=== PATIENT | male | born 1970 | race Two or more races ===

== ENCOUNTER 2024-06-07 07:29 | Inpatient (IN) | payer MEDICAID ==
[~2024-06-07] VITALS: Ht 180.3 cm; Wt 89.0 kg
[~2024-06-07 07:29] MED LIST: AML5T GT; CHOL20007 PO; LISI2.5T47 PO
[2024-06-07] MEDS: PREGABALIN CAPSULE 75 MG CAP PO ONE (08:51)
[2024-06-07] MEDS: CELECOXIB 100 MG CAP PO ONE (08:51)
[2024-06-07] MEDS: BUPIVACAINE W/ EPINEPH 0.5% INJ 50ML MDV IJ ONE (08:56)
[2024-06-07] MEDS: TRANEXAMIC ACID 20 ML ONE (08:56)
[2024-06-07] MEDS: ACETAMINOPHEN IV 100 ML IV ONE (09:08)
[2024-06-07] MEDS: CELECOXIB 100 MG CAP ONE (09:12)
[2024-06-07] MEDS: PREGABALIN CAPSULE 75 MG CAP ONE (09:12)
[2024-06-07] MEDS: CEFEPIME 1GM/ 50ML 50 ML IV ONE (09:32)
[2024-06-07] MEDS ORDERED: NITROGLYCERIN 0.4 MG SL TAB SL PRN ×2 (09:45→19:45)
[2024-06-07] MEDS ORDERED: OXYCODONE W/ ACETAMINOPHEN 5/325MG TABLET PO PRN (09:45)
[2024-06-07] MEDS: ACETAMINOPHEN IV 1000 MG/100ML (10MG/ML) IV ONE (09:45)
[2024-06-07] MEDS: KETOROLAC TROMETH 30 MG/ML 1ML VIAL ONE (09:55)
[2024-06-07] MEDS ORDERED: fentaNYL CITRATE 100 MCG/2 ML VL ONE (09:56)
[2024-06-07] MEDS ORDERED: MIDAZOLAM HCL 2MG/2ML 2ml VIAL (1mg/ml) ONE (09:56)
[2024-06-07] MEDS ORDERED: PATIENTS OWN MEDICATION (Lisinopril 2.5 MG) PO SCH (10:00)
[2024-06-07] MEDS ORDERED: CEFEPIME 1GM/ 50ML 50 ML IV SCH (10:00)
[2024-06-07] MEDS ORDERED: PATIENTS OWN MEDICATION (Cholecalciferol (Vitamin D3) 1 TAB) PO SCH (10:00)
[2024-06-07] MEDS ORDERED: PROPOFOL 10 MG/ML 20 ML IV ONE ×2 (10:23)
[2024-06-07] MEDS: ceFAZolin 1GM/50ML 50 ML IV SCH (10:28)
[2024-06-07] MEDS: CEFEPIME 1GM/ 50ML 50 ML IV SCH (10:35)
[2024-06-07] MEDS ORDERED: ESMOLOL HCL 10 ML IV ONE (10:36)
[2024-06-07] MEDS ORDERED: DexAMETHasone SOD PHOS 10MG/1ML VIAL INJ ONE (10:42)
[2024-06-07] MEDS ORDERED: ONDANSETRON HCL 4 MG/2 ML VIAL ONE (11:24)
[2024-06-07] MEDS ORDERED: ePHEDrine SULFATE 50 MG/ML AMP IV PRN (12:15)
[2024-06-07] MEDS ORDERED: HYDROmorphone HCL 2 MG/ML VL/or syr IV PRN ×3 (12:15→14:00)
[2024-06-07] MEDS: ONDANSETRON HCL 4 MG/2 ML VIAL IV ONE (12:15)
[2024-06-07] MEDS ORDERED: fentaNYL CITRATE 100 MCG/2 ML VL IV PRN (12:15)
--- NOTE | 2024-06-07 13:30 | DVH ---
EXAM: XY PELVIS AP CLINICAL INDICATION: left total hip replacement TECHNIQUE: XY PELVIS AP Comparison: None FINDINGS/IMPRESSION: There is no evidence of acute fracture or dislocation. Left total hip arthroplasty. The alignment is anatomical. There is no radiopaque foreign body.
[2024-06-07 16:02] VITALS: BP 149/77; PULSE 65; RESP 17; TEMP 97.6; O2SAT 100
[2024-06-07 16:50] VITALS: BP 149/77; PULSE 68; RESP 18; TEMP 97.6; O2SAT 99
[2024-06-07 17:00] VITALS: BP 153/88; PULSE 64; RESP 18; TEMP 97.6; O2SAT 99
[2024-06-07] MEDS: HYDROmorphone HCL 2 MG/ML VL/or syr IV PRN (17:07)
--- NOTE | 2024-06-07 19:42 | DVHHPRES ---
History of Present Illness Resident Creating Document: NATALIE OCSAIO RESIDENT History of Present Illness Patient is 54-year-old male with past medical history of hypertension and sickle cell disease who was admitted for left hip arthroplasty. Patient underwent left hip arthroplasty on 06/07/2024, hospitalist consulted for medical management of chronic disease and postoperative management. As per patient he denied any other symptoms including chest pain, fever, chills, no pain, any symptoms. Patient will be admitted to med surg for further continue monitoring. Past medical history: Hypertension, sickle cell disease Past surgical history: Right knee surgery Allergy: Morphine Medication: Amlodipine and lisinopril Social history: Lives at home, denying any recreational drug use. Review of Systems Constitutional: No: Fever, Chills, Sweats, Weakness, Malaise, Other Eyes: No: Pain, Vision change, Conjunctivae inflammation, Eyelid inflammation, Other, Redness ENT: No: Ear pain, Ear discharge, Nose pain, Nose discharge, Nose congestion, Mouth pain, Mouth swelling, Throat pain, Throat swelling, Other Respiratory: No: Cough, Dry, Shortness of breath, SOB with excertion, Wheezing, Hemoptysis, Pleuritic Pain, Sputum, Wheezing, Other Cardiovascular: No: Chest Pain, Palpitations, Orthopnea, Paroxysmal Noc. Dyspnea, Edema, Lt Headedness, Other Gastrointestinal: No: Nausea, Vomiting, Abdominal Pain, Diarrhea, Constipation, Melena, Hematochezia, Other Genitourinary: No Dysuria, No Frequency, No Incontinence, No Hematuria, No Retention, No Other Musculoskeletal: leg pain Skin: No: Rash, Lesions, Jaundice, Bruising, Other Neurological: No: Weakness, Numbness, Incoordination, Change in speech, Confusion, Seizures, Other Allergies: Coded Allergies: Morphine (Unverified Adverse Reaction, Unknown, jitters, 06/04/24) Medications Current Medications Medications Dose Ordered Sig/Shawna Route Start Time Stop Time Status Last Admin Dose Admin Amlodipine Besylate 5 mg DAILY GT 06/07/24 10:00 Patient Own Medication 1 tab DAILY PO 06/07/24 10:00 UNV Patient Own Medication 2.5 mg DAILY PO 06/07/24 10:00 Cancel Cholecalciferol 2,000 unit DAILY PO 06/07/24 10:00 Lisinopril 2.5 mg DAILY PO 06/07/24 10:00 Lactated Ringer's 1,000 ml @ 100 mls/hr Q10H IV 06/07/24 09:45 Sodium Chloride 10 ml Q8HR IV 06/07/24 14:00 Cefazolin Sodium 50 ml @ 50 mls/hr Q6H IV 06/07/24 09:45 06/07/24 22:44 06/07/24 10:28 Oxycodone/ Acetaminophen 1 tab Q4HP PRN PO 06/07/24 09:45 Hydromorphone HCl 1 mg Q2HP PRN IV 06/07/24 09:45 06/07/24 17:07 1 MG Ondansetron HCl 4 mg Q6HP PRN IV 06/07/24 09:45 Docusate Sodium 100 mg Q12HR PO 06/07/24 10:00 Enoxaparin Sodium 40 mg DAILY SC 06/08/24 10:00 Nitroglycerin 0.4 mg Q5MINP PRN SL 06/07/24 09:45 Enoxaparin Sodium 40 mg DAILY SC 06/09/24 10:00 UNV Nitroglycerin 0.4 mg Q5MINP PRN SL 06/07/24 19:45 Exam Vital Signs Vital Signs Date Time Temp Pulse Resp B/P (MAP) Pulse Ox O2 Delivery O2 Flow Rate FiO2 06/07/24 17:07 65 17 149/77 06/07/24 17:00 97.6 99 97.6 06/07/24 16:02 Room Air* 0 21 General Appearance: Alert, Oriented X3, Cooperative HEENT: Atraumatic, PERRLA Respiratory: Clear to auscultation, Normal air movement Cardiovascular: Normal S1, Normal S2 Abdominal: Soft, No tenderness Extremities: No clubbing, No cyanosis, No edema Skin: No rashes, No breakdown Neuro: Normal gait, Normal speech, Strength at 5/5 X4 ext Psych/Mental Status: Mental status NL Assessment/Plan Assessment/Plan Status post total Left hip arthroplasty Hypertension History of sickle cell disease Plan/recommendation -continue postoperative IV antibiotics cefazolin 1 g daily -physical therapy evaluation -IV fluids -continue hypertension medication amlodipine and lisinopril -pain management with Dilaudid as needed -PUD prophylaxis with Protonix -DVT prophylaxis with Lovenox Admitted to [facility]. Goals of care disease 20 tumor. Full code status. Plan discussed with Dr. Mariscal Plan discussed with: Patient, Other (RN) My Orders Orders - NATALIE OCASIO Procedure Category Date Status Time Admit ADMIT 06/07/24 Transmitted 19:32 Nitroglycerin PHA 06/07/24 In Process Sublingual (Ntrostat 19:45 Oxygen By Nasal RT 06/07/24 Transmitted Cannula 19:32 Lipid Panel LAB 06/07/24 Verified 19:33 Date of Service: Jun 07, 2024 Billing Provider: JUANITA MARISCAL MD Common Visit Codes: [id number] INP/OBS CARE (HIGH) NATALIE OCASIO Jun 07, 2024 19:42 JUANITA MARISCAL MD Jun 08, 2024 10:19
[2024-06-07] MEDS: LACTATED RINGER'S 1,000 ML IV SCH (19:45)
[2024-06-07 20:00] VITALS: PULSE 92; RESP 17; O2SAT 96
[2024-06-07 20:42] LABS: Triglycerides 141 mg/dL (< 150)
[2024-06-07 20:48] LABS: Cholesterol 231 mg/dL (< 200); HDL Cholesterol 40 mg/dL (40-59); LDL Cholesterol 163 mg/dL (< 100)
[2024-06-07 21:00] VITALS: BP 126/78; PULSE 91; RESP 17; TEMP 98; O2SAT 98
[2024-06-07] MEDS: SODIUM CHLOR 0.9% PF (SALINE LOCK) 10ML VIAL/SYR IV SCH (23:35)
[2024-06-07] MEDS: DOCUSATE SOD 100 MG CAP PO SCH (23:35)
[2024-06-08] VITALS (7 sets, daily range): BP systolic 130–154; BP diastolic 65–82; PULSE 63–88; RESP 18–20; TEMP 97.4–97.9; O2SAT 95–98
[2024-06-08] MEDS: PANTOPRAZOLE 40 MG/10 ML VIAL INJ IV ONE (00:49)
[2024-06-08 01:16] LABS: Urine Bacteria None Seen /hpf (None Seen)
[2024-06-08 01:30] LABS: Urine Blood Negative /uL (Negative); Urine Clarity Clear (Clear); Urine Color Light-Yellow (Yellow); Urine Protein, UAD Negative (Negative); Urine Specific Gravity 1.013 (1.001-1.035); Urine Squamous Epithelial Cell FEW /hpf (<5); Urine Urobilinogen Normal (Negative); Urine WBC < 1 /HPF (0-3)
[2024-06-08 06:26] LABS: Alanine Aminotransferase 24 U/L (7-40); Albumin 4.5 g/dL (3.2-4.8); Alkaline Phosphatase 60 U/L (46-116); Anion Gap 10 (5-15); BUN/Creatinine Ratio 18.6 (10.0-20.0); Blood Urea Nitrogen 19 mg/dL (9-23); Calcium 9.6 mg/dL (8.7-10.4); Carbon Dioxide 20 mmol/L (20-31); Magnesium 2.2 mg/dL (1.6-2.6); Potassium 4.2 mmol/L (3.5-5.1); Sodium 139 mmol/L (136-145); Total Protein 7.2 g/dL (5.7-8.2)
[2024-06-08 06:32] LABS: Aspartate Aminotransferase 55 U/L (13-40); Bilirubin, Total 2.5 mg/dL (0.2-1.0); Chloride 109 mmol/L (98-107); Glucose 125 mg/dL (74-106)
--- NOTE | 2024-06-08 07:59 | DVHPN2 ---
Progress Note Date Seen: Jun 08, 2024 Medical Necessity Reason Pt with a Central, PICC or Fol: No Subjective Patient reports: No new complaints (has heartburn but reports he ate a cheeseburger after 6pm that caused the issue, is no longer having issues with urination) Objective vital signs Vital Sign Date Time Temp Pulse Resp B/P (MAP) Pulse Ox O2 Delivery O2 Flow Rate FiO2 06/08/24 05:55 69 18 135/71 06/08/24 01:00 97.8 98 97.8 06/07/24 20:00 Room Air* 0 21 Total Intake and Output 06/07/24 06/07/24 06/08/24 15:00 23:00 07:00 Intake Total 320 ml 50 ml 250 ml Output Total 0 ml 1100 ml Balance 320 ml 50 ml -850 ml medications Current Medications Medications Dose Ordered Sig/Shawna Route Start Time Stop Time Status Last Admin Dose Admin Amlodipine Besylate 5 mg DAILY GT 06/07/24 10:00 Patient Own Medication 1 tab DAILY PO 06/07/24 10:00 UNV Patient Own Medication 2.5 mg DAILY PO 06/07/24 10:00 Cancel Cholecalciferol 2,000 unit DAILY PO 06/07/24 10:00 Lisinopril 2.5 mg DAILY PO 06/07/24 10:00 Lactated Ringer's 1,000 ml @ 100 mls/hr Q10H IV 06/07/24 09:45 Sodium Chloride 10 ml Q8HR IV 06/07/24 14:00 06/08/24 06:04 10 ML Oxycodone/ Acetaminophen 1 tab Q4HP PRN PO 06/07/24 09:45 Hydromorphone HCl 1 mg Q2HP PRN IV 06/07/24 09:45 06/08/24 05:55 1 MG Ondansetron HCl 4 mg Q6HP PRN IV 06/07/24 09:45 Docusate Sodium 100 mg Q12HR PO 06/07/24 10:00 06/07/24 23:35 100 MG Enoxaparin Sodium 40 mg DAILY SC 06/08/24 10:00 Future Hold Nitroglycerin 0.4 mg Q5MINP PRN SL 06/07/24 09:45 Enoxaparin Sodium 40 mg DAILY SC 06/09/24 10:00 Nitroglycerin 0.4 mg Q5MINP PRN SL 06/07/24 19:45 Examination: GENERAL:Normal, MSK:Abnormal laboratory and microbiology Laboratory Tests 06/08/24 05:41 Test 06/08/24 05:41 Range/Units Serum Glucose 125 H 74-106 mg/dL Problem List/Assessment/Plan Problem List/Assessment/Plan 54 year old female who is s/p Left LORRAINE POD 1 1. Pain control 2. WBAT LLE with use of walker 3. physical therapy 4. DVT ppx 5. Will begin discharge planning for SNF as patient reports the only help he has is his elderly mother Plan discussed with: Patient Date of Service: Jun 08, 2024 Billing Provider: ARNOLDO BRITTON MD Common Visit Codes: NOT BILLABLE OSVALDO MENDEZ NP Jun 08, 2024 07:59
--- NOTE | 2024-06-08 08:40 | DVH ---
EXAM: US LIVER HISTORY: elevated bilirubin COMPARISON: None TECHNIQUE: Multiple longitudinal and transverse sonographic images of the abdomen were obtained. Dopp ler was applied as indicated. FINDINGS: [PANCREAS]: The visualized portions of the pancreas are unremarkable. [AORTA]: Normal [LIVER]: 15 cm. normal echogenicity and echotexture. There is no focal hepatic mass lesion detected. [GALLBLADDER]: Gallbladder wall measures 0.2 cm. There are gallstones. There is no sonographic Raquel y sign. [BILIARY TREE]: Bile duct not well visualized. [ASCITES]: No free fluid is demonstrated. [VESSELS]: The main portal vein is patent on color Doppler evaluation. The inferior vena cava is alonso nt on color Doppler evaluation. [RIGHT KIDNEY]: 10.4 cm. normal cortical echogenicity and normal contour. No hydronephrosis. IMPRESSION: 1. Cholelithiasis at the gallbladder neck. 2. Negative sonographic solitario's sign. 3. Findings equivocal for acute cholecystitis. HS:Y
[2024-06-08] MEDS: amLODIPine BESYLATE 5 MG TAB GT SCH (09:00)
[2024-06-08] MEDS: LISINOPRIL 5 MG TAB PO SCH (09:00)
[2024-06-08] MEDS: CHOLECALCIFEROL (VITD3) 1,000UNIT=25mCg TAB PO SCH (09:01)
[2024-06-08] MEDS: ENOXAPARIN SOD 40 MG/0.4 ML SYRINGE SC SCH (09:02)
[2024-06-08 09:17] LABS: Basophils # (auto) 0.1 10 ^3/uL (0-0.2); Basophils % (auto) 0.2 % (0.0-2.0); Eosinophils # (auto) 0.1 10 ^3/uL (0-0.8); Eosinophils % (auto) 0.2 % (0.0-7.0); Hematocrit 35.7 % (41.0-53.0); Hemoglobin 12.5 g/dL (13.5-17.5); Lymphocytes # (auto) 4.5 10 ^3/uL (0.4-5.4); Lymphocytes % (auto) 16.8 % (10.0-50.0); Mean Corpuscular Hemoglobin 30.7 pg (28.0-32.0); Mean Corpuscular Volume 87.7 fL (80.0-100.0); Monocytes # (auto) 3.3 10 ^3/uL (0-1.3); Monocytes % (auto) 12.2 % (0.0-12.0); Neutrophils # (auto) 18.9 10 ^3/uL (1.6-8.6); Neutrophils % (auto) 70.6 % (37.0-80.0); Nucleated Red Blood Cells % 0.3 %; Platelet Count (auto) 243 10^3/uL (140-450); Red Blood Cells 4.07 10^6/uL (4.5-5.90); Red Cell Distribution Width 16.4 % (11.8-14.3); White Blood Cell 26.7 10^3/uL (4.4-10.8)
--- NOTE | 2024-06-08 18:30 | DVHPN2 ---
Subjective I am assuming the care of the patient was from today onwards. Reviewed: Care Plan Changes from previous H/P or p: No Changes Eyes: No Pain, No Vision change, No Conjunctivae inflammation, No Eyelid inflammation, No Other, No Redness ENT: No Ear pain, No Ear discharge, No Nose pain, No Nose discharge, No Nose congestion, No Mouth pain, No Mouth swelling, No Throat pain, No Throat swelling, No Other Cardiovascular: No Chest Pain, No Palpitations, No Orthopnea, No Paroxysmal Noc. Dyspnea, No Edema, No Lt Headedness, No Other Respiratory: No Cough, No Dry, No Shortness of breath, No SOB with excertion, No Wheezing, No Hemoptysis, No Pleuritic Pain, No Sputum, No Other Gastrointestinal: No Nausea, No Vomiting, No Abdominal Pain, No Diarrhea, No Constipation, No Melena, No Hematochezia, No Other Genitourinary: No Dysuria, No Frequency, No Incontinence, No Hematuria, No Retention, No Other Musculoskeletal: leg pain Skin: No Rash, No Lesions, No Jaundice, No Bruising, No Other Objective Vitals Vital Signs Date Time Temp Pulse Resp B/P (MAP) Pulse Ox O2 Delivery O2 Flow Rate FiO2 06/08/24 17:00 97.9 80 18 142/71 (94) 95 97.9 06/08/24 08:00 Room Air* 0 21 Intake/Output Intake and Output 06/08/24 07:00 Intake Total 620 ml Output Total 1100 ml Balance -480 ml Intake Oral 200 ml IV Total 420 ml Output Urine Total 1100 ml Exam HEENT pupils are reactive Neck is supple CV is S1-S2 regular rate and rhythm Respiratory diminished breath sound bases GI posterior bowel sound Extremity no edema 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 Medications Current Medications Medications Dose Ordered Sig/Shawna Route Start Time Stop Time Status Last Admin Dose Admin Amlodipine Besylate 5 mg DAILY GT 06/07/24 10:00 06/08/24 09:00 5 MG Patient Own Medication 1 tab DAILY PO 06/07/24 10:00 UNV Patient Own Medication 2.5 mg DAILY PO 06/07/24 10:00 Cancel Cholecalciferol 2,000 unit DAILY PO 06/07/24 10:00 Lisinopril 2.5 mg DAILY PO 06/07/24 10:00 06/08/24 09:00 2.5 MG Sodium Chloride 10 ml Q8HR IV 4/14/25 14:00 06/08/24 14:00 10 ML Oxycodone/ Acetaminophen 1 tab Q4HP PRN PO 06/07/24 09:45 Hydromorphone HCl 1 mg Q2HP PRN IV 06/07/24 09:45 06/08/24 16:19 1 MG Ondansetron HCl 4 mg Q6HP PRN IV 06/07/24 09:45 Docusate Sodium 100 mg Q12HR PO 06/07/24 10:00 06/08/24 09:00 100 MG Enoxaparin Sodium 40 mg DAILY SC 06/08/24 10:00 Hold Nitroglycerin 0.4 mg Q5MINP PRN SL 06/07/24 09:45 Enoxaparin Sodium 40 mg DAILY SC 06/09/24 10:00 Nitroglycerin 0.4 mg Q5MINP PRN SL 06/07/24 19:45 Laboratory Results Laboratory Tests 06/08/24 05:41 06/08/24 08:32 Chemistry Test 06/08/24 05:41 Albumin 4.5 g/dL (3.2-4.8) Calcium Level 9.6 mg/dL (8.7-10.4) Magnesium Level 2.2 mg/dL (1.6-2.6) Total Protein 7.2 g/dL (5.7-8.2) Lipid panel Test 06/07/24 19:33 Cholesterol Level 231 mg/dL (< 200) H HDL Cholesterol 40 mg/dL (40-59) Triglycerides Level 141 mg/dL (< 150) LFT Test 06/08/24 05:41 Alanine Aminotransferase (ALT) 24 U/L (7-40) Alkaline Phosphatase 60 U/L (46-116) Aspartate Amino Transferase (AST) 55 U/L (13-40) H Total Bilirubin 2.5 mg/dL (0.2-1.0) H HgA1c, TSH Test 06/07/24 19:50 06/08/24 05:41 Thyroid Stimulating Hormone (TSH) 0.36 uIU/mL (0.55-4.78) L Hemoglobin A1c 4.8 % A1C (<5.7) Urinalysis Test 06/08/24 00:56 Urine Color Light-yellow (Yellow) Urine Clarity Clear (Clear) Urine pH 6.0 (5.0-9.0) Urine Specific [place] 1.013 (1.001-1.035) Urine Protein Negative (Negative) Urine Ketones 1+ (Negative) H Urine Blood Negative /uL (Negative) Urine Nitrite Negative (Negative) Urine Bilirubin Negative (Negative) Urine Urobilinogen Normal mg/dL (Negative) Urine Leukocyte Esterase Negative /uL (Negative) Urine RBC <1 /hpf (0 - 3) Urine Microscopic WBC < 1 /HPF (0-3) Urine Squamous Epithelial Cells Few /hpf (<5) Urine Bacteria None seen /hpf (None Seen) Urine Glucose Normal mg/dL (Normal) Assessment/Plan Assessment/Plan 54-year-old male who was brought in by orthopedics for elective procedure. 1. Left hip osteoarthritis status post left hip arthroplasty 2. Hypertension 3. Sickle cell disease -continue pain meds as needed, DVT GI prophylaxis, PT evaluation and treatment Plan discussed with: Patient Date of Service: Jun 08, 2024 Billing Provider: ROSLYN SAMPSON MD Common Visit Codes: NOT BILLABLE ROSLYN SAMPSON MD Jun 08, 2024 18:30
[2024-06-08] MEDS: ONDANSETRON HCL 4 MG/2 ML VIAL IV PRN (22:22)
[2024-06-09] VITALS (8 sets, daily range): BP systolic 111–141; BP diastolic 65–73; PULSE 74–91; RESP 16–19; TEMP 97.8–98.9; O2SAT 93–98
[2024-06-09] MEDS ORDERED: METOCLOPRAMIDE HCL 5MG/ml INJ 2ml VIAL IV PRN (01:00)
[2024-06-09] MEDS: PANTOPRAZOLE 40 MG/10 ML VIAL INJ IV ONE (01:15)
--- NOTE | 2024-06-09 07:30 | DVHDS2 ---
Discharge Summary Date of Admission Jun 07, 2024 at 09:35 Date of Discharge: Jun 09, 2024 Wounds: If the wound is draining please change the gauze pad on the wound until it stops. If drainage persists past 10 days please notify our office. If there is a sticky gel dressing over your wound, you may leave this in place for as long as it is clean and dry. If it becomes loose or causes skin irritation, it is OK to remove it and place clean gauze over your wound. 1. You might notice some bruising around the surgical site, this is normal. 2. Check your temperature on a daily basis. Please note that a low-grade temp below 101 is not uncommon after surgery especially during the first 3 days. Notify the office if your temperature spikes above 101.5 after the 3rd post- operative date. 3. Many patients experience significant swelling in the thigh, this may extend below the knee and sometimes to the ankle. Swelling increases during the first week and subsides during the following week. 4. Provided you have been on a blood thinner since surgery and have been up and about at least three times per day, the risk of a blood clot is low and this swelling is an expected part of recovery. It will largely or completely resolve by your first post-operative visit. 5. Bourbon, if present, will be removed at 2 weeks during initial post-op visit. Labs/Diagnostic Data: Laboratory Results Test 06/08/24 08:32 06/08/24 05:41 06/08/24 00:56 06/07/24 19:50 White Blood Count 26.7 10^3/uL (4.4-10.8) Red Blood Count 4.07 10^6/uL (4.5-5.90) Hemoglobin 12.5 g/dL (13.5-17.5) Hematocrit 35.7 % (41.0-53.0) Mean Corpuscular Volume 87.7 fL (80.0-100.0) Mean Corpuscular Hemoglobin 30.7 pg (28.0-32.0) Mean Corpuscular Hemoglobin Concent 35.0 g/dL (32.0-36.0) Red Cell Distribution Width 16.4 % (11.8-14.3) Platelet Count 243 10^3/uL (140-450) Mean Platelet Volume 9.3 fL (6.9-10.8) Neutrophils (%) (Auto) 70.6 % (37.0-80.0) Lymphocytes (%) (Auto) 16.8 % (10.0-50.0) Monocytes (%) (Auto) 12.2 % (0.0-12.0) Eosinophils (%) (Auto) 0.2 % (0.0-7.0) Basophils (%) (Auto) 0.2 % (0.0-2.0) Neutrophils # (Auto) 18.9 10 ^3/uL (1.6-8.6) Lymphocytes # (Auto) 4.5 10 ^3/uL (0.4-5.4) Monocytes # (Auto) 3.3 10 ^3/uL (0-1.3) Eosinophils # (Auto) 0.1 10 ^3/uL (0-0.8) Basophils # (Auto) 0.1 10 ^3/uL (0-0.2) Nucleated Red Blood Cells 0.3 % Sodium Level 139 mmol/L (136-145) Potassium Level 4.2 mmol/L (3.5-5.1) Chloride Level 109 mmol/L (98-107) Carbon Dioxide Level 20 mmol/L (20-31) Anion Gap 10 (5-15) Blood Urea Nitrogen 19 mg/dL (9-23) Creatinine 1.02 mg/dL (0.700-1.30) Glomerular Filtration Rate Calc 87 mL/min (>90) BUN/Creatinine Ratio 18.6 (10.0-20.0) Serum Glucose 125 mg/dL (74-106) Hemoglobin A1c 4.8 % A1C (<5.7) Calcium Level 9.6 mg/dL (8.7-10.4) Magnesium Level 2.2 mg/dL (1.6-2.6) Total Bilirubin 2.5 mg/dL (0.2-1.0) Aspartate Amino Transferase (AST) 55 U/L (13-40) Alanine Aminotransferase (ALT) 24 U/L (7-40) Alkaline Phosphatase 60 U/L (46-116) Total Protein 7.2 g/dL (5.7-8.2) Albumin 4.5 g/dL (3.2-4.8) Urine Color Light-yellow (Yellow) Urine Clarity Clear (Clear) Urine pH 6.0 (5.0-9.0) Urine Specific [place] 1.013 (1.001-1.035) Urine Protein Negative (Negative) Urine Ketones 1+ (Negative) Urine Blood Negative /uL (Negative) Urine Nitrite Negative (Negative) Urine Bilirubin Negative (Negative) Urine Urobilinogen Normal mg/dL (Negative) Urine Leukocyte Esterase Negative /uL (Negative) Urine RBC <1 /hpf (0 - 3) Urine Microscopic WBC < 1 /HPF (0-3) Urine Squamous Epithelial Cells Few /hpf (<5) Urine Bacteria None seen /hpf (None Seen) Urine Glucose Normal mg/dL (Normal) Vitamin D 25-Hydroxy 66.8 ng/mL (30.0-100) Thyroid Stimulating Hormone (TSH) 0.36 uIU/mL (0.55-4.78) Free Thyroxine (T4) Calculated 1.41 ng/dL (0.89-1.76) Test 06/07/24 19:33 Triglycerides Level 141 mg/dL (< 150) Cholesterol Level 231 mg/dL (< 200) LDL Cholesterol 163 mg/dL (< 100) HDL Cholesterol 40 mg/dL (40-59) Other Laboratory Tests 06/08/24 08:32 06/08/24 05:41 Brief Hx & Hospital Course: s/p left LORRAINE Condition at Discharge: Good Final Diagnosis/Problems List left hip osteoarthritis Discharge Disposition: [facility] Discharge Instruct/Medications Diet: See Comment Diet comment: may advance diet as tolerated, drink plenty of fluids and avoid alcohol while taking narcotics Activity: See Comment Activity comment: 1.You can bear as much weight as you tolerate on your hip unless specifically instructed otherwise. You may use the walking aid which you were discharged with and switch to a cane whenever you feel comfortable doing so. You should use an assistive device until you can walk comfortably without it. Keep in mind that every patient moves at their own speed of recovery so take your time. 2.A physical therapist will visit you at home. 3. Although guarantees against a dislocation do not exist, the hip was noted to be sufficiently stable in surgery. Below are motions that you should dischargenot do for 4-6 weeks, depending on the surgical approach used. If there are questions, please call the office. a.Bend forward past 90 degrees b.Sit on a regular low chair, couch, car seat etc... c.Cross your legs d.Use a regular low toilet seat. e.Sleep on your stomach or on either side. 3.High impact activity such as jumping, aerobics, tennis, and skiing are not permitted during the first 3 months after surgery. These activities can contribute to accelerated wear and should be done with caution after this time. Discuss this with your surgeon if you have questions. 4.Although a bath or whirlpool is NOT permitted during the first 2-3 weeks, you may shower as soon as you get home from the hospital provided you are able to keep your bandage clean and dry and there is no wound drainage. If you are unable to place a secured covering over your bandage bed bath/sponge bath may likely be the more appropriate option. 5.Swimming is not permitted until the wound is healed, which typically occurs approximately 3-4 weeks after surgery. Follow Up/Referral: 1.Driving is not permitted within the first 2 weeks. 2.Your first postoperative visit will take place 2weeks after discharge. Please call the office to arrange this appointment. 3.Antibiotic preventative treatment is required before dental or other invasive procedures. Please ask your surgeon about this at your first postoperative visit. Your hip replacement contains metal which may activate metal detectors. You may wish to carry a letter from your surgeon to communicate this to security personnel. If you experience chest pain, shortness of breath or severe painful calf swelling, go to the nearest emergency room to be evaluated. Please call our office once your situation is stabilized. Medications: 1.You will be discharged with pain medication, Aspirin as a blood thinner and sometimes an anti-inflammatory medication such as Celebrex or Mobic might be prescribed. Please follow the instructions regarding these medicines as provided by your nurse at the hospital. 2.Narcotic pain medication has side effects, including constipation. Please ensure you continue to take stool softeners (Colace, Senna) while taking your pain medication to help protect against constipation. Getting up and moving around at least a few times per day helps with this also. 3.Lovenox 40 Sq x 12 days followed by one regular strength 325 mg coated aspirin daily for 4 weeks after surgery. Then, take one baby aspirin, 81 mg daily for 6 weeks more. A major, yet preventable, complication of Orthopaedic Surgery is a blood clot (DVT). It is important not to miss any doses of this important medication. 4.You should restart all of your prescription medications once discharged unless specifically instructed otherwise. 5.Herbal supplements may be restarted 2 weeks after surgery. Discharge Statement: "Patient was advised to return to the ER or call 911 if any headaches, dizziness, shortness of breath, chest pain, abdominal pain, bleeding, fevers, or worsening of medical condition. Patient was counseled about treatment plan, medications, possible side effects, patientverbalized understanding. All questions were answered to the best of my ability. This discharge took greater then 30 minutes in planning, reviewing documentation, counseling the patient, and discussing with other team members." DME: Diagnosis: postop ASSESSMENT ASSESSMENT Assessment OSVALDO MENDEZ NP Jun 09, 2024 07:30
[2024-06-09] MEDS: ENOXAPARIN SOD 40 MG/0.4 ML SYRINGE SC SCH (08:23)
[2024-06-09 09:27] LABS: Hematocrit 32.7 % (41.0-53.0); Hemoglobin 11.3 g/dL (13.5-17.5)
--- NOTE | 2024-06-10 06:16 | DVHOP2 ---
Operative Report - 2 Report Details Date: 06/10/24 Preop Diagnosis: Left hip osteoarthritis Postop Diagnosis: left hip osteoarthritis Surgeon: Ricardo CLARK Maintenance Team Leader: Surinder VILLALOBOS Anesthesiologist: Ivan DIEGO Anesthesia: Regional Implant: Ana Paula see implant log Consent: The patient was informed of the risks and benefits of the procedure. These include but are not limited to complications of anesthesia, postoperative infection, incomplete relief of symptoms, recurrence of symptoms, damage to blood vessels, nerves and tendons, deep venous thrombosis, pulmonary embolism and possible need for repeat surgery in the future. Estimated Blood Loss: 300 cc Name of Procedure Performed Left total hip arthroplasty Procedure Details Procedure Details: FINDINGS: Extensive degenerative disease with grade IV changes INDICATION: This patient has failed non-operative treatments for hip arthritis and is now indicated for a total hip replacement. Preoperatively in the waiting area as well as in the office, I had a long discussion with the patient regarding the plan, the expected outcome, the risks, benefits, and alternatives of surgery. The risks include, but are not limited to, infection (which may require future surgery and removal of implants) , bleeding (which may require a transfusion), damage to nerves, arteries, veins, tendons, muscles and other adjacent structures. Also discussed the possibilities of dislocation, leg-length discrepancy, intraoperative fractures, implant loosening, heterotopic bone formation, and revision for variety of reasons, and medical complications etc. This was discussed at length and consent has been obtained. DESCRIPTION OF PROCEDURE: In the preoperative holding area, the consent was reviewed and the appropriate extremity was verified by the patient and marked with my initials. The patient was then transferred to the operating theatre. Appropriate anesthetia was induced. All bony prominences were well padded. A time out was performed verifying the side and site of surgery according to standard protocol. Preoperative antibiotics were given. Tranexamic acid was given. The patient was then placed in the lateral decubitus position and fixed with rigid pelvic fixation. All bony prominences were well padded and an axillary roll was placed. The affected hip area was then prepped and draped in the usual sterile fashion. We made a standard posterolateral incision sharply through the skin and carried our dissection down through subcutaneous tissue to the underlying fascia achieving hemostasis where necessary. We incised the fascia in line with our incision. We identified and protected the sciatic nerve. We took down the external rotators and hip capsule from their insertion into the greater tro chanter, tagged them and retracted them posteriorly for further protection of the sciatic nerve. A check point was placed into the greater trochanter and the hip center and leg length length were registered. We then dislocated the femoral head and perfo rmed an osteotomy of the femoral neck in accordance with our pre-operative plan. The labrum was excised with a long-handle knife, and we exposed the acetabular rim and cotyloid fossa. We then reamed up to our final size in accordance with the preoperative plan. We copiously irrigated and then impacted the final cup into position. We placed two acetabular dome screws into the posterior-superior quadrant in the usual fashion. We irrigated the cup and impacted the liner, checking to make sure it was well seated. Attention was then turned to the femur. We used a box osteotome followed by a canal finder to gain entry to the canal. Intramedullary contents were suctioned and care was taken to ensure they did not touch the tissues. We sequentially reamed until good cortical contact, then broached up to out final size. We trialed with the appropriate femoral neck and head and reduced the hip. The hip was taken through a full range of motion. The hip soft tissues were examined in extension and external rotation, the anterior capsule and IT band were palpated, and combined anteversion was determined to be 40 degrees. The hip was stable at maximum flexion, at 90 degrees of flexion and 45 degrees of internal rotation and the position of sleep. Leg lengths were restored as shown using the computer navigation, and the trial LTC matched preoperative and intraoperative templating. The hip was then dislocated and trial components removed. We copiously irrigated the wound and impacted the final femoral stem into position. The femoral head was impacted onto a clean and dry trunion and confirmed to be seated. The hip was reduced ensuring to tissues in the acetabular cup. We again brought it through a full functional range of motion and there was no evidence for dislocation, instability, or impingement. The checkpoint was removed. A dilute betadine solution (17.5mL in 500mL saline) was used to wash the joint and left to sit for 3 minutes. This was then irrigated out with copious amounts of pulse lavage. We sprinkled 1g vancomycin powder below the fascia and 1g above the fascia. We copiously irrigated the wound and soft tissues. The short exter nal rotators and capsule were repaired to the greater trochanter through drill holes, and the quadratus was repaired. We palpated the sciatic nerve in continuity without tension. The fascia was closed with vicryl and a barbed suture. We closed over the fascia with vicryl suture and re-approximated the skin with shivam. A sterile dressing was placed. We returned the patient to the supine position. We verified all lower extremity compartments were soft and compressible and that we had intact distal pulses and checked our leg length rastafari. The patient was then transferred to the recovery room in stable condition. Condition Good Disposition Still a Patient ARNOLDO BRITTON MD Jun 10, 2024 06:16
[2024-06-10] MEDS ORDERED: PANTOPRAZOLE 40 MG/10 ML VIAL INJ IV SCH (10:00)
== END 2024-06-10 00:05 | DRG 324 ==
LOC: SUR 07:29 → OVERFLOW 09:35 → EDUNIT# 11:15 → WEST WING 15:23
PROVIDERS: ADMIT Internal Medicine; ATTEND Internal Medicine
PROC: 0SRB02A Replacement of Left Hip Joint with Metal on Polyethylene Synthetic Substitute, Uncemented, Open Approach (ICD-10-PCS; principal; 2024-06-07 09:58)
DX: M16.12 Unilateral primary osteoarthritis, left hip (principal); I10 Essential (primary) hypertension; Z79.899 Other long term (current) drug therapy; Z88.5 Allergy status to narcotic agent
CPT/HCPCS: 36415; 72170; 76705; 80053; 80061; 81001; 82306; 83036; 83735; 84439; 84443; 85014; 85018; 86850; 86900; 86901; 97110; 97116; 97163; 97530; G0378; J0131; J1100; J1885; J2250; J2405; J2470; J2704